=== PATIENT | male | born 1935 | race Caucasian/White ===

== ENCOUNTER 2017-09-26 10:08 | Emergency (ER) | payer OTHER ==
[~2017-09-26] VITALS: Ht 167.6 cm; Wt 63.5 kg
[2017-09-26] MEDS ORDERED: COZAAR100 MG (10:21)
[2017-09-26] MEDS ORDERED: LANTUS SOL100 UNIT/1 (10:21)
== END 2017-09-26 14:21 | disposition home or self-care (01) ==
LOC: ER 10:08
DX: E11.622 Type 2 diabetes mellitus with other skin ulcer (principal); L97.819 Non-pressure chronic ulcer of other part of right lower leg with unspecified severity